=== PATIENT | male | born 1980 | race Caucasian/White ===

== ENCOUNTER 2024-01-29 12:07 | Emergency (ER) | payer MEDICAID ==
[~2024-01-29] VITALS: Ht 177.8 cm; Wt 109.1 kg
[~2024-01-29 12:07] MED LIST: [UNRECOGNIZED DRUG - REMARK]
[2024-01-29 12:20] LABS: COVID AG,FIA SOURCE NASAL SWAB
[2024-01-29 12:21] VITALS: TEMP 99.1
[2024-01-29 12:40] LABS: SARS-COV2 (COVID) ANTIGEN,FIA Negative (Negative)
[2024-01-29 12:41] LABS: INFLUENZA TYPE A NEGATIVE FOR TYPE A (NEGATIVE); INFLUENZA TYPE B NEGATIVE FOR TYPE B (NEGATIVE)
[2024-01-29 13:17] LABS: BASOPHILS % (AUTO) 1.2 % (0.0-2.0); EOSINOPHILS % (AUTO) 6.6 % (1.0-6.0); HEMATOCRIT 42.7 % (41-53); HEMOGLOBIN 14.2 g/dL (13.5-17.5); LYMPHOCYTES # (AUTO) 1.8 K/uL (1.0-4.8); LYMPHOCYTES % (AUTO) 30.7 % (22.0-44.0); MEAN CORPUSCULAR HEMOGLOBIN 29.8 pg (26.0-34.0); MEAN CORPUSCULAR HGB CONC 33.3 G/dL (31.0-37.0); MEAN CORPUSCULAR VOLUME 90 fL (80-100); MONOCYTES # (AUTO) 0.8 K/uL (0.1-1.0); MONOCYTES % (AUTO) 13.4 % (2.0-9.0); NEUTROPHILS # (AUTO) 2.8 K/uL (1.8-7.7); NEUTROPHILS % (AUTO) 48.1 % (40.0-70.0); PLATELET COUNT (AUTO) 368 K/uL (150-450); RED BLOOD CELL COUNT(AUTO) 4.77 MIL/uL (4.50-5.90); RED CELL DISTRIBUTION WIDTH 16.4 % (11.5-14.5); WHITE BLOOD COUNT (AUTO) 5.7 K/uL (4.5-11.0)
[2024-01-29 13:26] LABS: ANION GAP 7 mmol/L (8-16); CALCIUM, TOTAL 8.5 mg/dL (8.8-10.5); CARBON DIOXIDE 28 mmol/L (22-29); CHLORIDE 104 mmol/L (98-107); CREATININE 0.73 mg/dL (0.60-1.30); GLOMERULAR FILTR. RATE CALC > 60 mL/min (>60); GLUCOSE,RANDOM 90 mg/dL (70-110); POTASSIUM 4.1 mmol/L (3.5-5.1); SODIUM SERUM 139 mmol/L (136-145); UREA NITROGEN, BLOOD 10 mg/dL (7-18)
[2024-01-29 13:33] LABS: ALANINE AMINOTRANSFERASE 17 U/L (12-78); ALBUMIN 3.6 g/dL (3.4-5.0); ALKALINE PHOSPHATASE 81 U/L (46-116); ASPARTATE AMINOTRANSFERASE 16 U/L (15-37); BILIRUBIN,TOTAL 0.3 mg/dL (0.1-1.0); TOTAL PROTEIN, SERUM 7.6 g/dL (6.4-8.2)
[2024-01-29] MEDS: ONDANSETRON HCL 4 MG/2 ML VIAL IVP ONE (15:21)
[2024-01-29] MEDS: DIPHENOXYLATE/ATROP 2.5-0.025 MG TABLET PO ONE (15:21)
[2024-01-29] MEDS: MAGNESIUM SULFATE 2 GM, MVI, ADULT NO.1 WITH VIT K 10 ML, THIAMINE 100 MG, FOLIC ACID 1... IV ONE (15:25)
[2024-01-29] MEDS ORDERED: ONDA-104 PO (15:39)
[2024-01-29] MEDS ORDERED: DIPH-1130 PO (15:39)
[2024-01-29 19:05] VITALS: BP 135/90; PULSE 70; RESP 18; O2SAT 99
== END 2024-01-29 19:27 | disposition home or self-care (01) ==
LOC: EMS 12:07
DX: F10.939 Alcohol use, unspecified with withdrawal, unspecified (principal); R19.7 Diarrhea, unspecified; R11.2 Nausea with vomiting, unspecified; F17.210 Nicotine dependence, cigarettes, uncomplicated; I10 Essential (primary) hypertension; Z20.822 Contact with and (suspected) exposure to COVID-19
CPT/HCPCS: 99284; 96365; 96366; 96375; 87426; 80048; 80076; 85025; 87804; 36415; J3490 ×2; J2405; J3411; J3475; J7030